=== PATIENT | male | born 1940 ===

== ENCOUNTER → 2018-11-19 22:09 | Outpatient (ROUT) | payer MEDICARE, OTHER, SELFPAY ==
[2018-11-20 00:20] LABS: Erythrocyte Sedimentation Rate 6 MM/HR (0-15)
[2018-11-20 00:26] LABS: Hematocrit 46.7 % (41-53); Hemoglobin 15.6 g/dL (13.5-17.5); Mean Corpuscular HGB Conc 33.4 % (30-36); Mean Corpuscular Hemoglobin 31.1 PG (26-34); Mean Corpuscular Volume 93.2 fL (80-100); Platelet Count 190 X10^3/uL (150-400); Red Blood Cell Count 5.01 X10^6/uL (4.5-5.9); Red Cell Distribution Width 14.1 % (11.6-14.8); White Blood Cell Count 8.6 X10^3/uL (4.5-11.0)
[2018-11-20 00:37] LABS: Add Manual Diff / Slide Review YES
[2018-11-20 01:32] LABS: Neutrophils Absolute Manual 5848 /uL (3000-5900); RBC Morphology Normal Morphology; Total Cells Counted 100
== END ==
PROVIDERS: Visit Provider Family Medicine
DX: J02.9 Acute pharyngitis, unspecified (principal); R53.1 Weakness; R60.9 Edema, unspecified
CPT/HCPCS: 36415; 85025; 85651